=== PATIENT | male | born 1955 | race Caucasian/White ===

== ENCOUNTER → 2020-09-11 | Outpatient (CLI) | payer MEDICARE ==
[2020-09-11 18:21] LABS: HEMATOCRIT 28 % (40-54); HEMOGLOBIN 9.5 G/DL (13.3-17.7); MEAN CORPUSCULAR HEMOGLOBIN 31 PG (25-34); MEAN CORPUSCULAR HGB CONC 34 G/DL (32-36); MEAN CORPUSCULAR VOLUME 90 FL (80-99)
[2020-09-11 18:22] LABS: BASOPHILS # (AUTO) 0.1 10^3/uL (0.0-0.1); BASOPHILS % (AUTO) 1 % (0-10); EOSINOPHILS # (AUTO) 0.1 10^3/uL (0.0-0.3); EOSINOPHILS % (AUTO) 1 % (0-10); ERYTHROCYTE SEDIMENTATION RATE 123 MM/HR (0-30); LYMPHOCYTES # (AUTO) 1.6 X 10^3 (1.0-4.0); LYMPHOCYTES % (AUTO) 14 % (12-44); MEAN PLATELET VOLUME 8.7 FL (7.4-10.4); MONOCYTES % (AUTO) 9 % (0-12); NEUTROPHILS % (AUTO) 75 % (42-75); PLATELET COUNT 756 10^3/uL (130-400)
[2020-09-12 07:33] LABS: ALANINE AMINOTRANSFERASE 14 U/L (0-55); ALBUMIN 2.8 GM/DL (3.2-4.5); ALKALINE PHOSPHATASE 141 U/L (40-136); BILIRUBIN,TOTAL 0.3 MG/DL (0.1-1.0); BUN/CREATININE RATIO 22; CALCIUM 8.9 MG/DL (8.5-10.1); CARBON DIOXIDE 18 MMOL/L (21-32); CHLORIDE 92 MMOL/L (98-107); CREATININE SERUM 0.64 MG/DL (0.60-1.30); GFR ESTIMATED > 60; GLUCOSE 94 MG/DL (70-105); POTASSIUM 4.2 MMOL/L (3.6-5.0); TOTAL PROTEIN 7.1 GM/DL (6.4-8.2)
[2020-09-12 08:03] LABS: SODIUM 124 MMOL/L (135-145)
== END ==
LOC: LAB FS 16:27
PROVIDERS: ATTEND Internal Medicine Infectious Disease
DX: L02.612 Cutaneous abscess of left foot (principal)
CPT/HCPCS: 36415; 80053; 85025; 85652; 86141

== ENCOUNTER → 2020-09-18 | Outpatient (CLI) | payer MEDICARE ==
[2020-09-18 21:48] LABS: HEMATOCRIT 26 % (40-54); HEMOGLOBIN 8.5 G/DL (13.3-17.7); MEAN CORPUSCULAR HEMOGLOBIN 30 PG (25-34); MEAN CORPUSCULAR HGB CONC 32 G/DL (32-36); MEAN CORPUSCULAR VOLUME 92 FL (80-99); WHITE BLOOD COUNT 7.1 10^3/uL (4.3-11.0)
[2020-09-18 21:49] LABS: BASOPHILS # (AUTO) 0.1 10^3/uL (0.0-0.1); BASOPHILS % (AUTO) 1 % (0-10); BUN/CREATININE RATIO 25; CARBON DIOXIDE 27 MMOL/L (21-32); CHLORIDE 94 MMOL/L (98-107); CREATININE SERUM 0.68 MG/DL (0.60-1.30); EOSINOPHILS # (AUTO) 0.1 10^3/uL (0.0-0.3); EOSINOPHILS % (AUTO) 1 % (0-10); ERYTHROCYTE SEDIMENTATION RATE 127 MM/HR (0-30); GFR ESTIMATED > 60; GLUCOSE 133 MG/DL (70-105); LYMPHOCYTES # (AUTO) 1.3 X 10^3 (1.0-4.0); LYMPHOCYTES % (AUTO) 18 % (12-44); MEAN PLATELET VOLUME 8.5 FL (7.4-10.4); MONOCYTES # (AUTO) 0.4 X 10^3 (0.0-1.0); MONOCYTES % (AUTO) 5 % (0-12); NEUTROPHILS # (AUTO) 5.2 X 10^3 (1.8-7.8); NEUTROPHILS % (AUTO) 74 % (42-75); PLATELET COUNT 399 10^3/uL (130-400); POTASSIUM 3.8 MMOL/L (3.6-5.0); SODIUM 132 MMOL/L (135-145)
[2020-09-18 21:50] LABS: ALANINE AMINOTRANSFERASE 7 U/L (0-55); ALKALINE PHOSPHATASE 114 U/L (40-136); BILIRUBIN,TOTAL 0.2 MG/DL (0.1-1.0); CALCIUM 8.8 MG/DL (8.5-10.1); TOTAL PROTEIN 6.9 GM/DL (6.4-8.2)
== END ==
LOC: LAB FS 21:00
PROVIDERS: ATTEND Internal Medicine
DX: L02.612 Cutaneous abscess of left foot (principal)
CPT/HCPCS: 36415; 80053; 85025; 85652; 86141

== ENCOUNTER → 2020-09-25 | Outpatient (CLI) | payer MEDICARE ==
[2020-09-25 18:36] LABS: HEMATOCRIT 28 % (40-54); HEMOGLOBIN 9.2 G/DL (13.3-17.7); MEAN CORPUSCULAR HEMOGLOBIN 31 PG (25-34); MEAN CORPUSCULAR HGB CONC 34 G/DL (32-36); MEAN CORPUSCULAR VOLUME 91 FL (80-99); MEAN PLATELET VOLUME 8.7 FL (7.4-10.4); PLATELET COUNT 450 10^3/uL (130-400); WHITE BLOOD COUNT 7.5 10^3/uL (4.3-11.0)
[2020-09-25 18:37] LABS: BASOPHILS # (AUTO) 0.1 10^3/uL (0.0-0.1); BASOPHILS % (AUTO) 1 % (0-10); EOSINOPHILS # (AUTO) 0.3 10^3/uL (0.0-0.3); EOSINOPHILS % (AUTO) 4 % (0-10); LYMPHOCYTES % (AUTO) 26 % (12-44); MONOCYTES # (AUTO) 0.5 X 10^3 (0.0-1.0); MONOCYTES % (AUTO) 7 % (0-12); NEUTROPHILS # (AUTO) 4.6 X 10^3 (1.8-7.8); NEUTROPHILS % (AUTO) 62 % (42-75)
[2020-09-25 18:57] LABS: ALANINE AMINOTRANSFERASE < 5 U/L (0-55); ALBUMIN 3.2 GM/DL (3.2-4.5); ALKALINE PHOSPHATASE 111 U/L (40-136); BILIRUBIN,TOTAL 0.3 MG/DL (0.1-1.0); BUN/CREATININE RATIO 22; CALCIUM 9.1 MG/DL (8.5-10.1); CARBON DIOXIDE 27 MMOL/L (21-32); CHLORIDE 100 MMOL/L (98-107); CREATININE SERUM 0.63 MG/DL (0.60-1.30); GFR ESTIMATED > 60; GLUCOSE 98 MG/DL (70-105); POTASSIUM 4.1 MMOL/L (3.6-5.0); SODIUM 138 MMOL/L (135-145); TOTAL PROTEIN 7.3 GM/DL (6.4-8.2)
[2020-09-25 19:11] LABS: ERYTHROCYTE SEDIMENTATION RATE 124 MM/HR (0-30)
== END ==
LOC: LAB FS 18:21
DX: L02.612 Cutaneous abscess of left foot (principal); Z79.2 Long term (current) use of antibiotics
CPT/HCPCS: 36415; 80053; 85025; 85652; 86141

== ENCOUNTER → 2020-10-02 | Outpatient (CLI) | payer MEDICARE ==
[2020-10-02 15:41] LABS: BASOPHILS % (AUTO) 1 % (0-10); HEMATOCRIT 32 % (40-54); HEMOGLOBIN 10.1 G/DL (13.3-17.7); MEAN CORPUSCULAR HEMOGLOBIN 29 PG (25-34); MEAN CORPUSCULAR HGB CONC 31 G/DL (32-36); MEAN CORPUSCULAR VOLUME 93 FL (80-99); MEAN PLATELET VOLUME 8.9 FL (7.4-10.4); NEUTROPHILS % (AUTO) 66 % (42-75); PLATELET COUNT 424 10^3/uL (130-400); WHITE BLOOD COUNT 9.1 10^3/uL (4.3-11.0)
[2020-10-02 15:42] LABS: BASOPHILS # (AUTO) 0.1 10^3/uL (0.0-0.1); EOSINOPHILS # (AUTO) 0.2 10^3/uL (0.0-0.3); EOSINOPHILS % (AUTO) 2 % (0-10); LYMPHOCYTES % (AUTO) 22 % (12-44); MONOCYTES # (AUTO) 0.7 X 10^3 (0.0-1.0); MONOCYTES % (AUTO) 8 % (0-12)
[2020-10-02 16:07] LABS: ALANINE AMINOTRANSFERASE 5 U/L (0-55); ALBUMIN 3.7 GM/DL (3.2-4.5); ALKALINE PHOSPHATASE 112 U/L (40-136); BILIRUBIN,TOTAL 0.4 MG/DL (0.1-1.0); BUN/CREATININE RATIO 21; CALCIUM 9.6 MG/DL (8.5-10.1); CARBON DIOXIDE 23 MMOL/L (21-32); CHLORIDE 99 MMOL/L (98-107); CREATININE SERUM 0.77 MG/DL (0.60-1.30); GFR ESTIMATED > 60; GLUCOSE 90 MG/DL (70-105); POTASSIUM 3.7 MMOL/L (3.6-5.0); SODIUM 134 MMOL/L (135-145); TOTAL PROTEIN 7.5 GM/DL (6.4-8.2)
[2020-10-02 16:34] LABS: ERYTHROCYTE SEDIMENTATION RATE 88 MM/HR (0-30)
== END ==
LOC: LAB FS 15:15
PROVIDERS: ATTEND Nurse Practitioner Family
DX: L02.612 Cutaneous abscess of left foot (principal)
CPT/HCPCS: 36415; 80053; 85025; 85652; 86141

== ENCOUNTER → 2020-10-09 | Outpatient (CLI) | payer MEDICARE ==
[2020-10-09 18:58] LABS: HEMATOCRIT 33 % (40-54); HEMOGLOBIN 10.4 G/DL (13.3-17.7); MEAN CORPUSCULAR HEMOGLOBIN 29 PG (25-34); MEAN CORPUSCULAR HGB CONC 31 G/DL (32-36); MEAN CORPUSCULAR VOLUME 92 FL (80-99); PLATELET COUNT 377 10^3/uL (130-400); WHITE BLOOD COUNT 6.3 10^3/uL (4.3-11.0)
[2020-10-09 18:59] LABS: BASOPHILS # (AUTO) 0.1 10^3/uL (0.0-0.1); BASOPHILS % (AUTO) 1 % (0-10); EOSINOPHILS # (AUTO) 0.3 10^3/uL (0.0-0.3); EOSINOPHILS % (AUTO) 5 % (0-10); LYMPHOCYTES # (AUTO) 1.9 X 10^3 (1.0-4.0); LYMPHOCYTES % (AUTO) 30 % (12-44); MONOCYTES # (AUTO) 0.5 X 10^3 (0.0-1.0); MONOCYTES % (AUTO) 7 % (0-12); NEUTROPHILS # (AUTO) 3.6 X 10^3 (1.8-7.8); NEUTROPHILS % (AUTO) 56 % (42-75)
[2020-10-09 19:24] LABS: ALANINE AMINOTRANSFERASE < 5 U/L (0-55); ALBUMIN 3.6 GM/DL (3.2-4.5); ALKALINE PHOSPHATASE 99 U/L (40-136); BILIRUBIN,TOTAL 0.4 MG/DL (0.1-1.0); BUN/CREATININE RATIO 23; CALCIUM 9.4 MG/DL (8.5-10.1); CARBON DIOXIDE 24 MMOL/L (21-32); CHLORIDE 97 MMOL/L (98-107); CREATININE SERUM 0.62 MG/DL (0.60-1.30); GFR ESTIMATED > 60; GLUCOSE 93 MG/DL (70-105); POTASSIUM 3.8 MMOL/L (3.6-5.0); SODIUM 135 MMOL/L (135-145); TOTAL PROTEIN 7.5 GM/DL (6.4-8.2)
[2020-10-09 19:41] LABS: ERYTHROCYTE SEDIMENTATION RATE 73 MM/HR (0-30)
== END ==
LOC: LAB FS 18:39
PROVIDERS: ATTEND Internal Medicine Infectious Disease
DX: A41.02 Sepsis due to Methicillin resistant Staphylococcus aureus (principal); Z79.2 Long term (current) use of antibiotics
CPT/HCPCS: 36415; 80053; 85025; 85652; 86141

== ENCOUNTER → 2020-10-16 | Outpatient (CLI) | payer MEDICARE ==
[2020-10-16 17:07] LABS: BASOPHILS % (AUTO) 1 % (0-10); EOSINOPHILS # (AUTO) 0.5 10^3/uL (0.0-0.3); EOSINOPHILS % (AUTO) 9 % (0-10); HEMATOCRIT 32 % (40-54); HEMOGLOBIN 10.3 G/DL (13.3-17.7); LYMPHOCYTES # (AUTO) 1.7 X 10^3 (1.0-4.0); LYMPHOCYTES % (AUTO) 26 % (12-44); MEAN CORPUSCULAR HEMOGLOBIN 29 PG (25-34); MEAN CORPUSCULAR HGB CONC 32 G/DL (32-36); MEAN CORPUSCULAR VOLUME 90 FL (80-99); MEAN PLATELET VOLUME 9.2 FL (7.4-10.4); MONOCYTES # (AUTO) 0.6 X 10^3 (0.0-1.0); MONOCYTES % (AUTO) 9 % (0-12); NEUTROPHILS # (AUTO) 3.5 X 10^3 (1.8-7.8); NEUTROPHILS % (AUTO) 55 % (42-75); PLATELET COUNT 318 10^3/uL (130-400); WHITE BLOOD COUNT 6.3 10^3/uL (4.3-11.0)
[2020-10-16 17:08] LABS: ERYTHROCYTE SEDIMENTATION RATE 63 MM/HR (0-30)
[2020-10-16 17:09] LABS: ALANINE AMINOTRANSFERASE 5 U/L (0-55); ALBUMIN 3.5 GM/DL (3.2-4.5); ALKALINE PHOSPHATASE 109 U/L (40-136); BILIRUBIN,TOTAL 0.4 MG/DL (0.1-1.0); BUN/CREATININE RATIO 19; CALCIUM 9.1 MG/DL (8.5-10.1); CARBON DIOXIDE 23 MMOL/L (21-32); CHLORIDE 99 MMOL/L (98-107); CREATININE SERUM 0.67 MG/DL (0.60-1.30); GFR ESTIMATED > 60; GLUCOSE 104 MG/DL (70-105); POTASSIUM 3.8 MMOL/L (3.6-5.0); SODIUM 134 MMOL/L (135-145); TOTAL PROTEIN 6.9 GM/DL (6.4-8.2)
== END ==
LOC: LAB FS 16:09
PROVIDERS: ATTEND Internal Medicine Infectious Disease
DX: L02.612 Cutaneous abscess of left foot (principal); Z79.2 Long term (current) use of antibiotics
CPT/HCPCS: 36415; 80053; 85025; 85652; 86141

== ENCOUNTER → 2020-10-23 | Outpatient (CLI) | payer MEDICARE, MEDICAID ==
[2020-10-23 19:24] LABS: ALANINE AMINOTRANSFERASE < 5 U/L (0-55); ALBUMIN 3.8 GM/DL (3.2-4.5); ALKALINE PHOSPHATASE 112 U/L (40-136); BILIRUBIN,TOTAL 0.3 MG/DL (0.1-1.0); BUN/CREATININE RATIO 20; CALCIUM 9.6 MG/DL (8.5-10.1); CARBON DIOXIDE 23 MMOL/L (21-32); CHLORIDE 98 MMOL/L (98-107); CREATININE SERUM 0.71 MG/DL (0.60-1.30); GFR ESTIMATED > 60; GLUCOSE 80 MG/DL (70-105); POTASSIUM 4.1 MMOL/L (3.6-5.0); SODIUM 133 MMOL/L (135-145); TOTAL PROTEIN 7.5 GM/DL (6.4-8.2)
[2020-10-23 20:35] LABS: HEMATOCRIT 34 % (40-54); HEMOGLOBIN 10.8 G/DL (13.3-17.7); MEAN CORPUSCULAR HEMOGLOBIN 28 PG (25-34); MEAN CORPUSCULAR HGB CONC 32 G/DL (32-36); MEAN CORPUSCULAR VOLUME 89 FL (80-99); MEAN PLATELET VOLUME 9.1 FL (7.4-10.4); NEUTROPHILS % (AUTO) 58 % (42-75); PLATELET COUNT 361 10^3/uL (130-400); WHITE BLOOD COUNT 6.1 10^3/uL (4.3-11.0)
[2020-10-23 20:36] LABS: BASOPHILS % (AUTO) 0 % (0-10); EOSINOPHILS % (AUTO) 7 % (0-10); LYMPHOCYTES % (AUTO) 25 % (12-44); MONOCYTES % (AUTO) 9 % (0-12)
[2020-10-23 20:37] LABS: EOSINOPHILS # (AUTO) 0.4 10^3/uL (0.0-0.3); ERYTHROCYTE SEDIMENTATION RATE 65 MM/HR (0-30); LYMPHOCYTES # (AUTO) 1.5 X 10^3 (1.0-4.0); MONOCYTES # (AUTO) 0.6 X 10^3 (0.0-1.0); NEUTROPHILS # (AUTO) 3.6 X 10^3 (1.8-7.8)
== END ==
LOC: LAB FS 18:29
PROVIDERS: ATTEND Internal Medicine Infectious Disease
DX: L02.612 Cutaneous abscess of left foot (principal); Z79.2 Long term (current) use of antibiotics
CPT/HCPCS: 36415; 80053; 85025; 85652; 86141